=== PATIENT | male | born 1965 | race Caucasian/White ===

== ENCOUNTER 2019-12-18 08:21 | Emergency (ER) | payer MEDICAID, SELFPAY ==
[2019-12-18 08:23] VITALS: BP 132/98; PULSE 113; RESP 22; TEMP 36.9; O2SAT 99; BMI 18.1
[2019-12-18 08:31] VITALS: BMI 18.1
[2019-12-18 08:47] LABS: Basophils # 0.1 K/mm3 (0-0.2); Basophils % 0.7 % (0.1-2.0); Eosinophils # 0.4 K/mm3 (0.0-0.4); Eosinophils % 3.2 % (0.1-12.0); Hematocrit 41.4 % (42.0-52.0); Hemoglobin 14.5 g/dL (14.1-18.0); Lymphocytes # 2.4 K/mm3 (0.7-4.5); Lymphocytes % 17.7 % (10-50); Mean Corpuscular Hemoglobin 33.4 pg (27.0-31.2); Mean Corpuscular Volume 95.5 fl (80-94); Mean Platelet Volume 8.4 fl (7.4-10.4); Monocytes # 0.7 K/mm3 (0.1-1.0); Monocytes % 5.1 % (1.7-9.3); Neutrophils # 9.8 K/mm3 (1.8-7.8); Neutrophils % 73.3 % (37.0-80.0); Platelet Count 348 K/mm3 (142-424); Red Blood Count 4.33 M/mm3 (4.60-6.20); Red Cell Distribution Width 16.4 % (11.5-17.5); White Blood Count 13.4 K/mm3 (4.8-10.8)
--- NOTE | 2019-12-18 08:48 | CT_ITS ---
PROCEDURE: CT ABDOMEN PELVIS W CON CLINICAL INDICATION: abd pain COMPARISON: No exams were available for comparison TECHNIQUE: IV Contrast: 75ML OPTIRAY 350 Oral Contrast none given Axial images obtained with sagittal and coronal reformats. All CT scans at the facility use one or more dose reduction, viz: automated exposure control, ma/kV adjustment per patient size (including targeted exams where dose is matched to indication, i.e. head), or iterative reconstruction technique. FINDINGS: Lower thorax: Emphysematous changes are seen in the lower lung [place], there is no pleural fluid ABDOMEN: Liver: The liver is normal size. There are couple of tiny hepatic cyst in the right lobe. There are calcifications lateral aspect right lobe. Gallbladder: Nondistended. No radio opaque stones. Pancreas: The pancreas is normal size. There is mild dilatation of the pancreatic duct, has a been previous pancreatitis? There are no peripancreatic inflammatory changes noted. Spleen: unremarkable Adrenals: unremarkable Kidneys/ureters: The kidneys are normal size and show symmetrical function. There are 2 small benign-appearing cortical cyst upper pole left kidney and single small benign-appearing cortical cyst upper pole right kidney. ABDOMEN & PELVIS: Stomach bowel: There is a small to moderate-sized hiatal hernia. Stomach appears grossly normal. There are mildly dilated fluid-filled loops of proximal small bowel possibly indicating some degree of enteritis. The distal small bowel appears normal. There is a moderate amount stool in the ascending and transverse colon. There is mild diverticulosis of the sigmoid colon but there is no diverticulitis. Peritoneum: No abnormal fluid collections. No obvious inflammatory changes. No free air. Lymph nodes: No enlarged lymph nodes apparent. Vasculature: There is mild diffuse arthrosclerotic calcification of the infrarenal aorta there is no aneurysm. Bones: No acute fracture, no definite lytic or blastic lesions seen. PELVIS: Reproductive: unremarkable Bladder: The bladder is moderately dilated and shows a mildly thickened wall. The prostate is upper limits of normal. Appendix: Unremarkable. No distention or periappendiceal phlegmonous change. IMPRESSION: Mildly dilated fluid-filled loops of proximal small bowel suggesting some degree of enteritis mild diverticulosis sigmoid colon without diverticulitis Dictated by: Dr. Jose Arredondo MD 12/18/2019 09:[address] Jose Arredondo MD in [facility] 12/18/2019 09:59
--- NOTE | 2019-12-18 08:49 | XR_ITS ---
PROCEDURE: XR CHEST PORTABLE CLINICAL HISTORY: pain COMPARISON: XR CHEST 2V from 07/31/2019 FINDINGS: Moderate emphysematous changes are seen with hyperexpansion lung [place]. There is a diffuse opacity with irregular borders right apex which could represent a superior sulcus tumor. There is no acute infiltrate seen, there is minimal atelectasis or scarring at the left base. Cardiac size is normal and there is no pleural fluid. IMPRESSION: Mildly severe COPD with suspicious right apical pleural parenchymal opacity possibly due to prominent pleural parenchymal scarring but a right superior sulcus or apical mass cannot be excluded Dictated by: Dr. Jose Arredondo MD 12/18/2019 10:[address] Jose Arredondo MD in [facility] 12/18/2019 10:02
[2019-12-18 08:51] LABS: Chloride 93 mmol/L (98-107); Sodium 136 mmol/L (136-145)
[2019-12-18 08:53] LABS: Potassium 2.9 mmoL/L (3.5-5.1)
[2019-12-18 08:54] LABS: Alanine Aminotransferase 30 U/L (12-78); Albumin Level 4.6 g/dl (3.5-5.0); Albumin/Globulin Ratio 1.1 (1.1-1.8); Alkaline Phosphatase 128 U/L (38-126); Amylase 75 U/L (30-110); Anion Gap 12.9 mEq/L (5-15); Aspartate Amino Transferase 33 U/L (17-59); Bilirubin,Total 0.6 mg/dl (0.2-1.3); Blood Urea Nitrogen 9 mg/dl (9-20); Calcium 9.7 mg/dl (8.4-10.2); Carbon Dioxide 33 mmol/L (22.0-30.0); Creatinine Clearance Estimated 83 mL/min (50-200); Estimated Glomerular Filt Rate 102 ml/min (>60); GFR (African American) 123 ML/MIN (>60); Globulin 4.2 g/dL (1.3-3.2); Glucose 137 mg/dl (74-100); Lipase 258 U/L (23-300); Total Protein,Serum 8.8 g/dl (6.3-8.2)
--- NOTE | 2019-12-18 09:09 | PC.NURSE ---
Pt to rad
[2019-12-18 09:45] LABS: Microscopic, Urine URINE MICROSCOPIC (MICROSCOPIC)
[2019-12-18 09:46] LABS: Appearance,Urine CLEAR (Clear); Bilirubin,Urine Negative (Negative); Blood, Urine Negative (Negative); Color,Urine YELLOW (Yellow); Glucose,Urine (UA) Negative (Negative); Ketones,Urine Negative (Negative); Leukocyte Esterase,Urine Negative (Negative); Nitrate,Urine Negative (Negative); PH,Urine 8.5 (5.0-8.5); Protein,Urine Negative (Negative); Urobilinogen,Urine 0.2 EU/dl (0.2)
--- NOTE | 2019-12-18 09:48 | ECG_ITS ---
APPROVED REPORT Exam: Resting ECG HR:72 bpm ECG Measurements Heart Rate 72 AXES OK 126 P 83 QRSd 80 QRS 86 QT 444 T 70 QTc 486 <Conclusion> Normal sinus rhythm Junctional ST depression, probably normal Prolonged QT Abnormal ECG Electronically signed by : Antoni Justice, 12/19/2019 17:28:25
[2019-12-18 09:51] LABS: Squamous Epithelial Cell,Urine Occasional #/hpf (0-5)
[2019-12-18 10:02] VITALS: BP 145/91; PULSE 78; O2SAT 100
[2019-12-18 10:50] VITALS: BP 135/96; PULSE 101; O2SAT 100
--- NOTE | 2019-12-18 10:55 | [facility].EDABDPAI ---
ED Disposition Clinical Impression: Anorexia, Cancer cachexia, Continuous severe abdominal pain, Intractable nausea and vomiting Disposition: Home, Self-Care Condition on Discharge: Good Instructions: DI for Acute Abdomen Prescriptions: Ciprofloxacin HCl [Cipro 500mg Tab] 500 mg PO BID 10 Days #20 tab Prescription Printed Prochlorperazine Maleate [Compazine 10mg tablet] 10 mg PO QID 10 Days #30 tab Prescription Printed metroNIDAZOLE [Flagyl 500mg Tablet] 500 mg PO TID 10 Days #30 tab Prescription Printed dronabinoL [Marinol] 5 mg PO TID PRN 3 Days #10 cap PRN Reason: Mild Pain Prescription Printed Referrals: Provider,Referral, MD [Primary Care Provider] - - Critical Care Critical Care Time: No Attestation: On 12/18/19, the high probability of a clinically significant, sudden or life threatening deterioration of the following system(s) required my full and direct attention, intervention and personal management. The time I documented below is in addition to time spent performing reported procedures but includes the following listed in this critical care notation. Medical Decision Making - Medical Records Medical records reviewed: Yes: I reviewed the patient's medical records. - Vick Inquiry Pt receiving controlled substance: No Vital Signs: 12/18/19 08:23 12/18/19 10:02 12/18/19 10:50 Temperature 98.4 F Temperature Source Oral Pulse Rate [Left Radial] 113 H 78 101 H Respiratory Rate 22 Blood Pressure [Right Arm] 132/98 H 145/91 H 135/96 H Blood Pressure Mean [Right Arm] 109 109 109 Blood Pressure Source [Right Arm] Automatic Cuff Automatic Cuff Blood Pressure Position [Right Arm] Sitting Sitting Sitting 02 Sat by Pulse Oximetry 99 100 100 Oxygen Delivery Method Room Air Nasal Cannula Room Air Oxygen Flow Rate (LPM) 2 - Lab Data Lab results reviewed: Yes: I reviewed the patient's lab results. Lab Results 12/18/19 08:40: WBC 13.4 H, RBC 4.33 L, Hgb 14.5, Hct 41.4 L, MCV 95.5 H, MCH 33.4 H, MCHC 35.0, RDW 16.4, Plt Count 348, MPV 8.4, Neut % (Auto) 73.3, Lymph % (Auto) 17.7, Delta % (Auto) 5.1, Eos % (Auto) 3.2, Baso % (Auto) 0.7, Neut # (Auto) 9.8 H, Lymph # (Auto) 2.4, Delta # (Auto) 0.7, Eos # (Auto) 0.4, Baso # (Auto) 0.1 12/18/19 08:40: Sodium 136, Potassium 2.9 L*, Chloride 93 L, Carbon Dioxide 33 H, Anion Gap 12.9, BUN 9, Creatinine 0.80, Estimated Creat Clear 83, Estimated GFR 102, Est GFR ( Amer) 123, Glucose 137 H, Calcium 9.7, Total Bilirubin 0.6, AST 33, ALT 30, Alkaline Phosphatase 128 H, Total Protein 8.8 H, Albumin 4.6, Globulin 4.2 H, Albumin/Globulin Ratio 1.1, Amylase 75, Lipase 258 12/18/19 09:40: Urine Color Yellow, Urine Appearance Clear, Urine pH 8.5, Ur Specific [place] 1.010, Urine Protein Negative, Urine Glucose (UA) Negative, Urine Ketones Negative, Urine Blood Negative, Urine Nitrate Negative, Urine Bilirubin Negative, Urine Urobilinogen 0.2, Ur Leukocyte Esterase Negative, Urine RBC None, Urine WBC None, Ur Squamous Epith Cells Occasional, Urine Bacteria None Result diagrams: 12/18/19 08:40 12/18/19 08:40 Orders (Tests/Meds): ED MEDICATIONS Discontinued Medications Generic Name Dose Route Start Last Admin Trade Name Freq PRN Reason Stop Dose Admin Hydromorphone HCl 1 mg 12/18/19 08:46 12/18/19 08:40 Dilaudid 2mg/Ml Syringe IV 12/18/19 08:47 1 mg ONCE ONE Administration Hydromorphone HCl 1 mg 12/18/19 09:38 12/18/19 09:38 Dilaudid 2mg/Ml Syringe IV 12/18/19 09:39 1 mg ONCE ONE Administration Sodium Chloride 1,000 mls @ 999 mls/hr 12/18/19 08:45 12/18/19 08:40 Sod Chlor 0.9% 1000ml Bag IV 12/18/19 09:45 999 mls/hr .Q1H1M WILLIAMS Administration Ioversol 75 ml 12/18/19 09:27 12/18/19 09:28 Rad-Optiray 350 100ml Vial IV 12/18/19 09:28 75 ml ONCE ONE Administration Protocol Ondansetron HCl 4 mg 12/18/19 08:31 12/18/19 08:40 Zofran 4mg/2ml Vial IV 12/18/19 08:32 4 mg ONCE ONE A
[2019-12-18 11:01] VITALS: BP 142/100; PULSE 83; O2SAT 100
[2019-12-18 11:31] VITALS: BP 142/91; PULSE 78; RESP 16; TEMP 36.6; O2SAT 97
== END 2019-12-18 11:34 | disposition home or self-care (01) ==
PROVIDERS: Emergency Provider Family Medicine
DX: R63.0 Anorexia (principal); C34.90 Malignant neoplasm of unspecified part of unspecified bronchus or lung; C78.7 Secondary malignant neoplasm of liver and intrahepatic bile duct; C79.31 Secondary malignant neoplasm of brain; C79.51 Secondary malignant neoplasm of bone; Z79.899 Other long term (current) drug therapy; F17.210 Nicotine dependence, cigarettes, uncomplicated
CPT/HCPCS: 71045; 74177; 80053; 81001; 82150; 83690; 85025; 93005; 96365; 96375; 96376; 99284; J2405; Q9967

== ENCOUNTER 2020-06-26 10:01 | Emergency (ER) | payer MEDICAID, SELFPAY ==
--- NOTE | 2020-06-26 09:54 | ECG_ITS ---
APPROVED REPORT Exam: Resting ECG HR:70 bpm ECG Measurements Heart Rate 70 AXES [place] 124 P 77 QRSd 86 QRS 81 QT 374 T 75 QTc 403 Conclusion Normal sinus rhythm Normal ECG Electronically signed by : Antoni Justice, 06/26/2020 19:52:14
[2020-06-26 10:01] VITALS: BP 140/89; PULSE 78; RESP 16; TEMP 36.6; O2SAT 98; BMI 20.7
--- NOTE | 2020-06-26 10:02 | [facility].EDGENADL ---
ED Disposition Clinical Impression: Chest pain Qualifiers: Chest pain type: unspecified Qualified Code(s): R07.9 - Chest pain, unspecified Disposition: Home, Self-Care Condition on Discharge: Good Instructions: DI for Atypical Chest Pain Additional Instructions: Additional instructions for CHEST PAIN: See your physician as soon as possible for further evaluation. Return immediately if worsening chest pain, vomiting, shortness of breath, fever, coughing of blood. Call back to the emergency department in 1 to 2 days to obtain your COVID-19 test result. Quarantine yourself until you obtain your result. Referrals: PCP,No [Primary Care Provider] - - Critical Care Critical Care Time: No Attestation: On , the high probability of a clinically significant, sudden or life threatening deterioration of the following system(s) required my full and direct attention, intervention and personal management. The time I documented below is in addition to time spent performing reported procedures but includes the following listed in this critical care notation. Medical Decision Making - Vick Inquiry Pt receiving controlled substance: Yes Vick was queried for this patient: No Reason not queried -: Emergent pt cond-no time Risks and benefits of using a controlled substance: were not discussed with pt by me Vital Signs: 06/26/20 10:01 06/26/20 10:09 06/26/20 10:35 Temperature 97.8 F Temperature Source Oral Pulse Rate Pulse Rate [Radial] 78 70 70 Respiratory Rate 16 16 18 Blood Pressure Blood Pressure [Right Arm] 140/89 140/90 129/96 H Blood Pressure Mean [Right Arm] 106 106 107 Blood Pressure Source [Right Arm] Automatic Cuff Automatic Cuff Blood Pressure Position Blood Pressure Position [Right Arm] Sitting Sitting 02 Sat by Pulse Oximetry 98 100 98 Oxygen Delivery Method Room Air 06/26/20 11:36 06/26/20 11:48 Temperature 98 F Temperature Source Oral Pulse Rate 88 Pulse Rate [Radial] 65 Respiratory Rate 18 16 Blood Pressure 112/62 Blood Pressure [Right Arm] 124/81 Blood Pressure Mean [Right Arm] 95 Blood Pressure Source [Right Arm] Automatic Cuff Blood Pressure Position Sitting Blood Pressure Position [Right Arm] 02 Sat by Pulse Oximetry 97 Oxygen Delivery Method Room Air - Lab Data Lab Results 06/26/20 10:10: WBC 11.0 H, RBC 4.54 L, Hgb 14.9, Hct 46.1, MCV 101.5 H, MCH 32.8 H, MCHC 32.3, RDW 15.4, Plt Count 218, MPV 7.9, Neut % (Auto) 86.9 H, Lymph % (Auto) 8.0 L, [place] % (Auto) 4.5, Eos % (Auto) 0.2, Baso % (Auto) 0.3, Neut # (Auto) 9.5 H, Lymph # (Auto) 0.9, [place] # (Auto) 0.5, Eos # (Auto) 0.0, Baso # (Auto) 0.0, Total Counted 100, Neutrophils % (Manual) 69, Lymphocytes % (Manual) 27, Monocytes % (Manual) 4, Platelet Estimate Normal, RBC Morphology Normal 06/26/20 10:10: Sodium 134 L, Potassium 4.0, Chloride 102, Carbon Dioxide 32 H, Anion Gap 4.0 L, BUN 24 H, Creatinine 0.60 L, Estimated Creat Clear 129, Estimated GFR 141, Est GFR ( Amer) 171, Glucose 83, Calcium 8.8, Total Bilirubin 0.3, AST 25, ALT 35, Alkaline Phosphatase 64, Troponin I < 0.01, Total Protein 5.8 L D, Albumin 3.3 L, Globulin 2.5, Albumin/Globulin Ratio 1.3 Result diagrams: 06/26/20 10:10 06/26/20 10:10 Orders (Tests/Meds): ED MEDICATIONS Discontinued Medications Generic Name Dose Route Start Last Admin Trade Name Freq PRN Reason Stop Dose Admin Morphine Sulfate 4 mg 06/26/20 10:27 06/26/20 10:29 Morphine 4mg/Ml Syringe IV 06/26/20 10:28 4 mg ONCE ONE Administration Ondansetron HCl 4 mg 06/26/20 10:27 06/26/20 10:28 Ondansetron 4mg/2ml Vial IV 06/26/20 10:28 4 mg ONCE ONE Administration ORDERS Category Date Time Status Covid-19 Nasal PCR Sendout P&C Stat Lab 06/26/20 10:28 Received - Radiology Data #1 Image(s): Chest Image Reviewed: Yes I reviewed the patient's radiology image, Yes I have reviewed radiologist's interpretation PROCEDURE: XR C
--- NOTE | 2020-06-26 10:07 | XR_ITS ---
PROCEDURE: XR CHEST PORTABLE CLINICAL HISTORY: CHEST PAIN COMPARISON: CR XR CHEST 2V from 07/31/2019 CR XR CHEST PORTABLE from 12/18/2019 FINDINGS: The cardiomediastinal silhouette and pulmonary vascularity are within normal limits. There is stable mild bilateral apical pleural scarring. Mild emphysematous changes seen with hyperexpansion lung [place]. See no acute infiltrate. There is no pleural fluid. IMPRESSION: Mild COPD, no acute chest pathology noted Dictated by: Dr. Jose Arredondo MD 06/26/2020 10:48 Dr. Jose Arredondo MD in [facility] 06/26/2020 10:48
[2020-06-26 10:09] VITALS: BP 140/90; PULSE 70; RESP 16; O2SAT 100
[2020-06-26 10:35] VITALS: BP 129/96; PULSE 70; RESP 18; O2SAT 98
[2020-06-26 10:44] LABS: Basophils % 0.3 % (0.1-2.0); Eosinophils % 0.2 % (0.1-12.0); Hematocrit 46.1 % (42.0-52.0); Hemoglobin 14.9 g/dL (14.1-18.0); Lymphocytes # 0.9 K/mm3 (0.7-4.5); Mean Corpuscular HGB Conc 32.3 g/dL (31.8-35.4); Mean Corpuscular Hemoglobin 32.8 pg (27.0-31.2); Mean Corpuscular Volume 101.5 fl (80-94); Mean Platelet Volume 7.9 fl (7.4-10.4); Monocytes # 0.5 K/mm3 (0.1-1.0); Monocytes % 4.5 % (1.7-9.3); Neutrophils # 9.5 K/mm3 (1.8-7.8); Neutrophils % 86.9 % (37.0-80.0); Platelet Count 218 K/mm3 (142-424); Red Blood Count 4.54 M/mm3 (4.60-6.20); Red Cell Distribution Width 15.4 % (11.5-17.5)
[2020-06-26 10:54] LABS: Chloride 102 mmol/L (98-107); Sodium 134 mmol/L (136-145)
[2020-06-26 10:57] LABS: Alanine Aminotransferase 35 U/L (12-78); Albumin Level 3.3 g/dl (3.5-5.0); Albumin/Globulin Ratio 1.3 (1.1-1.8); Alkaline Phosphatase 64 U/L (38-126); Aspartate Amino Transferase 25 U/L (17-59); Bilirubin,Total 0.3 mg/dl (0.2-1.3); Blood Urea Nitrogen 24 mg/dl (9-20); Calcium 8.8 mg/dl (8.4-10.2); Carbon Dioxide 32 mmol/L (22.0-30.0); Creatinine Clearance Estimated 129 mL/min (50-200); Estimated Glomerular Filt Rate 141 ml/min (>60); GFR (African American) 171 ML/MIN (>60); Globulin 2.5 g/dL (1.3-3.2); Glucose 83 mg/dl (74-100); Total Protein,Serum 5.8 g/dl (6.3-8.2)
[2020-06-26 11:13] LABS: Troponin I < 0.01 ng/ml (0.00-0.034)
[2020-06-26 11:19] LABS: MANUAL DIFFERENTIAL MANUAL DIFFERENTIAL (MANUAL DIFF)
[2020-06-26 11:36] VITALS: BP 124/81; PULSE 65; RESP 18; O2SAT 97
[2020-06-26 11:48] VITALS: BP 112/62; PULSE 88; RESP 16; TEMP 36.6; O2SAT 98
[2020-06-26 11:57] LABS: Lymphocytes % 27 % (10-50); Monocytes % 4 % (2-9); Neutrophils % 69 % (42-76); Platelet Estimate Normal; RBC Morphology Normal; Total Cells Counted 100
[2020-06-27 10:09] LABS: Covid-19 Nasal PCR Sendout P&C Negative
== END 2020-06-26 11:50 | disposition home or self-care (01) ==
PROVIDERS: Emergency Provider Emergency Medicine
DX: Z20.828 Contact with and (suspected) exposure to other viral communicable diseases (principal); C71.9 Malignant neoplasm of brain, unspecified; C78.7 Secondary malignant neoplasm of liver and intrahepatic bile duct; C78.00 Secondary malignant neoplasm of unspecified lung; C78.89 Secondary malignant neoplasm of other digestive organs; C79.00 Secondary malignant neoplasm of unspecified kidney and renal pelvis; F17.210 Nicotine dependence, cigarettes, uncomplicated
CPT/HCPCS: 71045; 80053; 84484; 85007; 85025; 93005; 96375; 99283; J2405; U0004